=== PATIENT | female | born 1985 | race Caucasian/White ===

== ENCOUNTER 2016-09-24 20:39 | Emergency (ER) | payer OTHER | END 2016-09-25 00:32 | disposition home or self-care (01) | LOC: FER 20:39 | DX: H66.93 Otitis media, unspecified, bilateral (principal); J02.9 Acute pharyngitis, unspecified; F17.210 Nicotine dependence, cigarettes, uncomplicated; Z88.0 Allergy status to penicillin | CPT/HCPCS: 87450; 99283 ==

== ENCOUNTER 2016-09-30 14:40 | Emergency (ER) | payer OTHER | END 2016-09-30 17:08 | disposition home or self-care (01) | LOC: FER 14:40 | DX: H66.92 Otitis media, unspecified, left ear (principal); F17.200 Nicotine dependence, unspecified, uncomplicated | CPT/HCPCS: J2930 ==